=== PATIENT | male | born 1945 | race Caucasian/White ===

== ENCOUNTER → 2017-01-27 | Outpatient (CLI) | payer OTHER ==
[~2017-01-27] VITALS: Ht 172.7 cm; Wt 93.1 kg
[~2017-01-27] MED LIST: ASPI81TA28 PO; ATOR-26 PO; ATOR-54 PO; CLOP1TAB15 PO; DOXY-300 PO; FRRS300 PO; GABA-113 PO; GABA1CAP5 PO; GALA12TA PO; HYDR25TA4 PO; IPRA1AER2 INH; ISOS120T5 PO; MECL1TAB40 PO; METO50TA16 PO; NTRGSL/4 UT; OXGN; PANT40TA PO; PRAM0.129 PO; RANO500T PO; ROPI0.25 PO; ULT50X PO
[2017-01-27 13:21] VITALS: Ht 172.7 cm; Wt 93.1 kg
--- NOTE | 2017-01-27 14:01 | PAT Medication Instructions ---
Service Date Jan 27, 2017. Current Home Medication List Aspirin (Aspirin Ec), 81 MG PO QAM Atorvastatin (Lipitor), 80 MG PO QAM Clopidogrel (Plavix), 75 MG PO QAM Gabapentin (Neurontin), 2 CAP PO HS Gabapentin (Neurontin), 600 MG PO BID Galantamine Hydrobromide (Razadyne), 12 MG PO QAM Hydrochlorothiazide (Hctz), 25 MG PO QAM Ipratropium-Albuterol (Combivent Respimat), 1 PUFFS INH QID PRN for SOB/Wheezing Isosorbide Mononitrate Ext Rel (Imdur Ext Rel), 120 MG PO BID Meclizine HCl (Meclizine HCl), 2 TAB PO TID PRN for VERTIGO Metoprolol Tartrate (Lopressor) (Lopressor), 50 MG PO BID Nitroglycerin (Nitrostat), 0.4 MG UT PRN Oxygen (Oxygen), 2 LITERS NA HS Pantoprazole (Protonix), 40 MG PO QAM Pramipexole (Mirapex), 0.25 MG PO TID Medication Instructions For Your Scheduled Surgery - Check with surgeon/dna sequencing associate: Clopidogrel (Plavix), 75 MG PO QAM Aspirin (Aspirin Ec), 81 MG PO QAM - Hold the following medications the morning of surgery: Hydrochlorothiazide (Hctz), 25 MG PO QAM Pramipexole (Mirapex), 0.25 MG PO TID - Take the following medications the morning of surgery with a sip of water: Pantoprazole (Protonix), 40 MG PO QAM Nitroglycerin (Nitrostat), 0.4 MG UT PRN Meclizine HCl (Meclizine HCl), 2 TAB PO TID PRN for VERTIGO Metoprolol Tartrate (Lopressor) (Lopressor), 50 MG PO BID Isosorbide Mononitrate Ext Rel (Imdur Ext Rel), 120 MG PO BID Ipratropium-Albuterol (Combivent Respimat), 1 PUFFS INH QID PRN for SOB/Wheezing Gabapentin (Neurontin), 600 MG PO BID Atorvastatin (Lipitor), 80 MG PO QAM Galantamine Hydrobromide (Razadyne), 12 MG PO QAM - Hold the following medications as scheduled the night and afternoon before surgery (okay to take AM dose day prior to surgery): Pramipexole (Mirapex), 0.25 MG PO TID - Take the following medications as scheduled the night before surgery: Oxygen (Oxygen), 2 LITERS NA HS Nitroglycerin (Nitrostat), 0.4 MG UT PRN Meclizine HCl (Meclizine HCl), 2 TAB PO TID PRN for VERTIGO Metoprolol Tartrate (Lopressor) (Lopressor), 50 MG PO BID Isosorbide Mononitrate Ext Rel (Imdur Ext Rel), 120 MG PO BID Ipratropium-Albuterol (Combivent Respimat), 1 PUFFS INH QID PRN for SOB/Wheezing Gabapentin (Neurontin), 600 MG PO BID Gabapentin (Neurontin), 2 CAP PO HS If you have any questions please call us at [phone] (Rina Barrios PA-C) or [phone] or [phone]
--- NOTE | 2017-01-27 14:31 | DIAGNOSTIC IMAGING REPORT ---
CHEST PREADMISSION(PA/LAT) HISTORY: Preop. COMPARISON: Chest 11/29/2015. FINDINGS: The heart remains mildly enlarged. There are poststernotomy changes. No pleural effusions. No pneumothorax. No focal lung consolidations to suggest pneumonia. No evidence for pulmonary edema. There is an electronic stimulator device within the left anterior chest. Thoracic spinal electrodes are again noted. A 6 mm nodular density base of the left lower lobe on the AP view is not confirmed on the lateral view and is likely due to the overlapping rib. Stable lower mediastinal widening consistent with prominent mediastinal fat. IMPRESSION: No significant change compared to the prior study. No acute process. Stable mild cardiomegaly. Electronically signed by: Todd Jensen M.D. 01/27/2017 2:28 PM Dictated Date/Time: 01/27/2017 2:25 PM
[2017-01-27 15:00] LABS: PROTHROMBIN TIME (PATIENT) 10.4 SECONDS (9.0-12.0)
[2017-01-27 15:01] LABS: URINE APPEARANCE CLOUDY (CLEAR); URINE BILIRUBIN NEG (NEG); URINE COLOR YELLOW; URINE EPITHELIAL CELL AUTO 20-30 /lpf (0-5); URINE NITRITE POS (NEG); URINE PH 7.5 (4.5-7.5); URINE SPECIFIC GRAVITY 1.025 (1.000-1.030); UROBILINOGEN POS (NEG); ZZUR CULT IF INDIC CLEAN CATCH YES
[2017-01-27 15:02] LABS: BASO % 0.2 %; BASO ABS # 0.01 K/uL (0-0.2); COMPLETE YES; EOS % 1.5 %; HEMATOCRIT 37.7 % (42-52); IG% 0.2 %; LYMPH % 18.4 %; LYMPH ABS # 0.96 K/uL (1.2-3.4); MEAN CORPUSCULAR HEMOGLOBIN 29.8 pg (25-34); MEAN CORPUSCULAR HGB CONC 33.2 g/dl (32-36); MEAN PLATELET VOLUME 10.6 fL (7.4-10.4); MONO % 8.4 %; NEUT % 71.3 %; PLATELET COUNT 179 K/uL (130-400); RED BLOOD COUNT 4.19 M/uL (4.7-6.1); WHITE BLOOD COUNT 5.23 K/uL (4.8-10.8)
[2017-01-27 15:09] LABS: CREATININE 0.87 mg/dl (0.60-1.40)
[2017-01-27 15:10] LABS: BUN/CREATININE RATIO 12.2 (10-20); CALCIUM 9.1 mg/dl (8.5-10.1); POTASSIUM 4.4 mmol/L (3.5-5.1)
[2017-01-27 15:22] LABS: MANUAL MICROSCOPIC REQUIRED? NO; REVIEW REQ? NO
== END | disposition home or self-care (01) ==
LOC: C.LAB 08:00 → EDSTATUS 02-26 13:30
PROVIDERS: ATTEND Orthopaedic Surgery
DX: Z01.818 Encounter for other preprocedural examination (principal); I51.7 Cardiomegaly

== ENCOUNTER 2017-02-04 10:45 | Inpatient (IN) | payer OTHER ==
[~2017-02-04] VITALS: Ht 172.7 cm; Wt 94.2 kg
[2017-02-04] VITALS (7 sets, daily range): BP systolic 100–125; BP diastolic 42–61; PULSE 54–69; TEMP 36.5–36.7; O2SAT 91–97; Ht 172.7 cm; Wt 94.2 kg
[~2017-02-04 10:45] MED LIST changes: -ATOR-54 PO; -DOXY-300 PO; -FRRS300 PO; -RANO500T PO; -ROPI0.25 PO; -ULT50X PO
--- NOTE | 2017-02-04 11:27 | History and Physical ---
History & Physical Date of Service Feb 04, 2017. History & Physical CC: Cold painful left leg HPI: Mr. Salomon is a 70-year-old gentleman who had a left fem pop bypass in Nov. Wednesday while cutting his grass he developed pain in his left leg. It has gotten progressively worse with coldness and a slight numb feeling that developed today. He denies rest pain. PAST MEDICAL HISTORY: Positive for heart disease, hypertension, peripheral vascular occlusive disease and carotid disease. SURGICAL HISTORY: Positive for tonsillectomy, cholecystectomy, appendectomy, hernia repair, open heart bypass, nerve stimulator and heart monitor in 2011. FAMILY HISTORY: Positive for heart disease, migraines, diabetes mellitus, dementia, tuberculosis, circulatory problems, carotid artery disease. SOCIAL HISTORY: He quit smoking in 1992, smoked for 30 years. He does not drink. REVIEW OF SYSTEMS: A 10-system review of systems was obtained and only positive findings were occasional chest pain, heart failure, shortness of breath , bronchitis and heartburn along with the HPI symptoms. PHYSICAL EXAMINATION: The patient is awake, oriented x3. He is in no apparent distress. Head and neck within normal limits. I could not appreciate carotid bruits. Lungs are clear. Heart had a regular rate and rhythm. Abdominal exam is benign. No aneurysmal dilatation was appreciated. Vascular exam reveals radials, carotids and temporal arteries +2 bilaterally. Femorals are +2 bilaterally. He does have pedal pulses on the right. The left leg has no palpable pedal pulses. There is a monophasic doppler in the left peroneal and posterior tibial arteries. No DP could be found with the doppler. The left foot is cool to touch. He is able to wiggle his toes but does have a slight decrease in sensation of the left foot. there is capillary refill present but decreased on the left. Imp: Left femoral popliteal bypass occlusion Plan: Patient is admitted for arteriography and possible thrombolysis of the left leg bypass. I have discussed the risks options and benefits of the procedure with the patient. The patient understands the risks options and benefits and agrees to the procedure.
--- NOTE | 2017-02-04 11:28 | Procedure Note ---
Pre-Mod Sedation Assessment General Date of Moderate Sedation: Feb 04, 2017. Vital Signs: Vital Signs Past 12 Hours Date Time Temp Pulse Resp B/P Pulse Ox O2 Delivery O2 Flow Rate FiO2 02/04/17 10:54 36.5 59 18 140/62 96 Room Air Pre-Sedation Airway Assessment Oral Cavity: Dentures Smoking Status: Former Smoker Mallampati Classification: Class I ASA Classification: Class II Notes The planned sedation has been discussed with the patient and consent obtained. I have identified the patient, determined the appropriateness of sedation and have assessed the patient immediately prior to the procedure. All medicine(s) and interventions are by my order.
[2017-02-04] MEDS ORDERED: SODIUM CHLORIDE 0.9% 1000ML 1,000 ML IV SCH ×2 (11:32→13:30)
[2017-02-04] MEDS ORDERED: FENTANYL CITRATE INJ 50 MCG/1 ML 2 ML VIAL ONE (11:43)
[2017-02-04] MEDS ORDERED: HEPARIN SOD (PORCINE) 5000 UNIT/ML 1 ML VIAL ONE (11:43)
[2017-02-04] MEDS ORDERED: MIDAZOLAM HCL 1 MG/ML 2ML VIAL ONE (11:44)
[2017-02-04] MEDS ORDERED: CEFAZOLIN IV 1,000 MG in DEXTROSE 5% 50ML 50 ML IV ONE (11:45)
[2017-02-04] MEDS ORDERED: CEFAZOLIN SOD 1000MG/55 ML D5W IV ONE (11:53)
[2017-02-04] MEDS ORDERED: HEPARIN SOD (PORCINE) 1000 UNIT/ML 10 ML VIAL ONE (11:53)
[2017-02-04 12:10] LABS: INR 1.1 (0.9-1.1); PROTHROMBIN TIME (PATIENT) 11.7 SECONDS (9.0-12.0)
[2017-02-04 12:19] LABS: CREATININE 0.84 mg/dl (0.60-1.40)
[2017-02-04] MEDS ORDERED: MIDAZOLAM HCL 1 MG/ML 2ML VIAL IV ONE ×2 (12:30→12:42)
[2017-02-04] MEDS ORDERED: FENTANYL CITRATE INJ 50 MCG/1 ML 2 ML VIAL IV ONE ×2 (12:30→12:42)
[2017-02-04] MEDS ORDERED: HEPARIN 25000 UNIT/500 ML D5W ONE (12:50)
[2017-02-04] MEDS ORDERED: NURSING VERBAL MED ORDER ONE (13:00)
[2017-02-04] MEDS ORDERED: IODIXANOL (VISIPAQUE) 270 MG/ML 150ML IV ONE (13:00)
[2017-02-04] MEDS ORDERED: LIDOCAINE HCL 1% 20 ML VIAL INFIL ONE (13:00)
--- NOTE | 2017-02-04 13:02 | Procedure Note ---
Post-Moderate Sedation Plan General Date of Moderate Sedation Feb 04, 2017. Vital Signs: Vital Signs Past 12 Hours Date Time Temp Pulse Resp B/P Pulse Ox O2 Delivery O2 Flow Rate FiO2 02/04/17 10:54 36.5 59 18 140/62 96 Room Air Review - Discharge Plan Post Moderate Sedation Plan: On clinical assessment, the patient appears to have tolerated the conscious sedation without complications. Patient is recovering as anticipated. Patient will continue to be monitored by nursing and may be discharged when conscious sedation discharge criteria are met.
[2017-02-04] MEDS ORDERED: ALTEPLASE, RECOMBINANT 0 MG in SODIUM CHLORIDE 0.9% 250ML 250 ML IV ONE ×4 (13:03)
--- NOTE | 2017-02-04 13:13 | [facility] Post Operative Brief Note ---
Immediate Operative Summary Operative Date Feb 04, 2017. Pre-Operative Diagnosis Occluded left fem pop bypass Post-Operative Diagnosis Same Procedure(s) Performed Left lower Extremity Arterigoram Insertion of Infusion Catheter Thomboysis Moderate Sedation [id number] Surgeon George Jelly Filter Tender Surgeon(s) None Estimated Blood Loss 5 Findings occluded fem pop bypass, recon of ant tib Specimens None Anesthesia Local with conscious sedation Complication(s) None Disposition Surgical ICU
[2017-02-04] MEDS ORDERED: ONDANSETRON INJ 2 MG/ML 2 ML VIAL IV PRN (13:15)
[2017-02-04] MEDS ORDERED: HEPARIN 25,000 UNIT/500ML D5W 500 ML IV PRN (13:15)
[2017-02-04] MEDS ORDERED: HEPARIN 25,000 UNIT/500ML D5W 500 ML IV SCH (13:15)
[2017-02-04] MEDS: SODIUM CHLORIDE 0.9% 1000ML 1,000 ML IV SCH ×2 (14:24→21:42)
[2017-02-04] MEDS ORDERED: ALTEPLASE, RECOMBINANT 24 MG in SODIUM CHLORIDE 0.9% 250ML 216 ML IV ONE ×2 (14:30)
[2017-02-04 14:57] LABS: BASO % 0.2 %; BASO ABS # 0.01 K/uL (0-0.2); EOS % 1.9 %; HEMATOCRIT 37.5 % (42-52); IG% 0.2 %; LYMPH % 19.7 %; LYMPH ABS # 1.14 K/uL (1.2-3.4); MEAN CELL VOLUME 91.9 fL (80-100); MEAN CORPUSCULAR HEMOGLOBIN 30.6 pg (25-34); MEAN PLATELET VOLUME 10.4 fL (7.4-10.4); MONO % 9.8 %; NEUT % 68.2 %; PLATELET COUNT 145 K/uL (130-400); RED BLOOD COUNT 4.08 M/uL (4.7-6.1)
[2017-02-04 15:03] LABS: COMPLETE YES; MEAN CORPUSCULAR HGB CONC 33.3 g/dl (32-36)
[2017-02-04] MEDS: MoRPHine SULFATE 4 MG/ML 1 ML CARP\\VIAL IV PRN ×2 (15:39→20:00)
[2017-02-04 19:13] LABS: BASO % 0.3 %; BASO ABS # 0.02 K/uL (0-0.2); COMPLETE YES; EOS % 1.8 %; HEMATOCRIT 34.4 % (42-52); IG% 0.3 %; LYMPH % 18.9 %; LYMPH ABS # 1.24 K/uL (1.2-3.4); MEAN CELL VOLUME 91.5 fL (80-100); MEAN CORPUSCULAR HEMOGLOBIN 30.6 pg (25-34); MEAN CORPUSCULAR HGB CONC 33.4 g/dl (32-36); MEAN PLATELET VOLUME 10.5 fL (7.4-10.4); MONO % 9.9 %; NEUT % 68.8 %; PLATELET COUNT 156 K/uL (130-400); RED BLOOD COUNT 3.76 M/uL (4.7-6.1); WHITE BLOOD COUNT 6.55 K/uL (4.8-10.8)
--- NOTE | 2017-02-04 19:22 | CRITICAL CARE CONSULTATION ---
DATE OF CONSULTATION: 02/04/2017 CHIEF COMPLAINT: Left leg pain and numbness. HISTORY OF PRESENT ILLNESS: The patient is a very nice 71-year-old gentleman who underwent a left fem-pop bypass in November of 2015. He has multiple medical problems, and he was in his normal state of health until 2 days ago, when he was cutting grass. He has a push mower and felt pain in his left buttock. The pain gradually spread down his leg and he rested for a little bit and then went back out to try to finish the lawn. By the time he tried to go back in the house, he had difficulty even walking up steps secondary to severe pain primarily in the left lower leg. He said it was numb, cold and started to turn a little bit white. He felt like perhaps he had pulled a muscle or tendon. So, he did not move around much the next day. Primarily due to the numbness and pain, his foot also became weak. He presented to the [facility], where he was evaluated and pulses in the foot were unable to be dopplered. Dr. Vazquez was contacted and the patient was transferred to [facility]. It should be added that at [facility], he had an EKG, which showed a normal sinus rhythm with right bundle-branch block and left axis deviation. He also had a chest x-ray, which showed no acute process. Labs were also drawn. After being briefly evaluated in the Emergency Department by Dr. Vazquez, the patient was eventually taken to the operating room today and underwent left lower extremity arteriogram, infusion catheter placement and he is now on a TPA infusion. The angiogram intraoperatively showed an occlusion of the left fem-pop bypass. He is now admitted to the intensive care unit for neurovascular monitoring. PAST MEDICAL HISTORY: Hypertension, peripheral vascular disease, chronic obstructive pulmonary disease, coronary artery disease status post myocardial infarction and coronary artery bypass grafting surgery in 2001, obstructive sleep apnea for which he wears 2 liters of oxygen at night, history of L1 compression fracture, gastroesophageal reflux disease, restless legs syndrome, syncope, hiatal hernia, vertigo and Parkinson's. PAST SURGICAL HISTORY: Status post tonsillectomy, cholecystectomy, appendectomy, hernia repair x3, coronary artery bypass grafting surgery, stenting to the right leg, intraocular lens placement, neurostimulator placement, and partial orchiectomy. ALLERGIES: TO TEGRETOL, BUDESONIDE, AND FORMOTEROL. OUTPATIENT MEDICATIONS: Aspirin 81 mg daily, Lipitor 80 mg daily, Plavix 75 mg daily, gabapentin 800 mg at bedtime and 600 mg b.i.d., Razadyne 12 mg in the morning, hydrochlorothiazide 25 mg in the morning, Combivent 1 puff q.i.d. p.r.n., extended release Imdur 120 mg p.o. b.i.d., meclizine p.r.n., metoprolol 50 mg b.i.d., Nitrostat p.r.n., Protonix 40 mg daily, and pramipexole 0.25 mg p.o. t.i.d. SOCIAL HISTORY: He smoked about a pack and half of cigarettes per day x30-35 years and quit around 1992. He drinks alcohol occasionally. He is retired for 10 years now and has 2 children. He is . He served in the [employer] for 4 years and the [employer] for 16 years. FAMILY HISTORY: Significant for coronary artery disease, diabetes mellitus, dementia, migraines and tuberculosis. REVIEW OF SYSTEMS: The patient denies any headache, visual changes, loss of appetite, dizziness, chest pain, shortness of breath, nausea, vomiting, diarrhea, fevers, chills, abdominal pain, hematochezia, hemoptysis, falls, skin rashes, bruising, or bleeding. He was in his normal state of health prior to this episode the other day. PHYSICAL EXAMINATION: VITAL SIGNS: Temperature 36.5, heart rate 55, respiratory rate 18, blood pressure 120/61, and oxygen saturation 97% on room air. HEENT: Pupils are round bilaterally. Oral mucosa is slightly dry. He is edentulous. Posterior pharynx is clear. NECK: No adenopathy. LUNGS: Clear to auscultation bilaterally with decreased breath sounds in the bases. Slightly bradycardic. No murmurs, gallops or rubs. CHEST: Has symmetric expansion. ABDOMEN: Obese, soft, nondistended, and nontender. Active bowel sounds. EXTREMITIES: Show the left foot to be cold from about the medial malleolus distally. It is cool from several inches above the medial malleolus to the distal medial malleolus around the leg. The rest of the leg is warm. Pulses are not audible by Doppler in the left foot distal to the popliteal artery. The skin over the left foot has decreased capillary refill. He is able to wiggle his toes. Right leg, there is trace to no edema over the leg. Dorsalis pedis pulses 1+. No skin changes. NEUROLOGIC: The patient is awake, alert, and oriented and able to carry on a conversation. His sensation is grossly intact with the exception of the left forefoot. LABORATORY DATA: White blood cell count 5.8, hemoglobin 12.5, hematocrit 37.5, and platelets 145. PT 11.1, INR 1.1, and PTT 104.8. BUN 11 and creatinine 0.84. MRSA screen is pending. I reviewed the EKG from [facility]. IMPRESSION: 1. Occluded left fem-pop bypass, status post placement of an infusion catheter into the left arterial system from a right groin sheath, now receiving TPA. 2. Peripheral vascular disease, status post left fem-pop bypass in November of 2015. 3. History of hypertension, presently controlled. 4. History of chronic obstructive pulmonary disease. 5. Coronary artery disease with a history of open heart surgery as well as stenting post surgery. Clinically, he has been stable and without chest pain. 6. Mild obstructive sleep apnea, for which he uses 2 liters of oxygen at bedtime. PLAN AND RECOMMENDATIONS: 1. Morphine for analgesia. 2. Continue neurovascular checks and watch for any signs of bleeding. I suspect Dr. Vazquez will do further studies tomorrow. 3. Continue outpatient medications. 4. Continue heparin infusion. 5. Provide incentive spirometer and coaching. 6. He is on proton pump inhibitor for GI prophylaxis. Thank you for asking me to see this very nice gentleman. Please call me with any questions or concerns. JASON
[2017-02-04 19:29] LABS: PARTIAL THROMBOPLASTIN RATIO 2.3
[2017-02-05] VITALS (23 sets, daily range): BP systolic 79–127; BP diastolic 44–70; PULSE 60–83; TEMP 36.3–37.1; O2SAT 91–99
[2017-02-05 00:58] LABS: BASO % 0.1 %; BASO ABS # 0.01 K/uL (0-0.2); COMPLETE YES; EOS % 0.7 %; HEMATOCRIT 32.9 % (42-52); IG% 0.3 %; LYMPH % 11.4 %; MEAN CELL VOLUME 92.4 fL (80-100); MEAN CORPUSCULAR HEMOGLOBIN 30.6 pg (25-34); MEAN CORPUSCULAR HGB CONC 33.1 g/dl (32-36); MONO % 7.7 %; NEUT % 79.8 %; PLATELET COUNT 140 K/uL (130-400); RED BLOOD COUNT 3.56 M/uL (4.7-6.1); WHITE BLOOD COUNT 7.01 K/uL (4.8-10.8)
[2017-02-05 01:31] LABS: PARTIAL THROMBOPLASTIN RATIO 2.2
[2017-02-05] MEDS ORDERED: ALTEPLASE, RECOMBINANT 12 MG in SODIUM CHLORIDE 0.9% 250ML 228 ML IV ONE ×2 (02:30)
[2017-02-05] MEDS ORDERED: CEFAZOLIN IV 2,000 MG in DEXTROSE 5% 50ML 50 ML IV SCH ×4 (06:00)
[2017-02-05 06:39] LABS: BASO % 0.2 %; BASO ABS # 0.02 K/uL (0-0.2); COMPLETE YES; EOS % 0.3 %; HEMATOCRIT 30.6 % (42-52); IG% 0.3 %; LYMPH % 10.5 %; LYMPH ABS # 0.98 K/uL (1.2-3.4); MEAN CELL VOLUME 91.9 fL (80-100); MEAN CORPUSCULAR HEMOGLOBIN 30.6 pg (25-34); MEAN CORPUSCULAR HGB CONC 33.3 g/dl (32-36); MEAN PLATELET VOLUME 10.1 fL (7.4-10.4); MONO % 6.6 %; NEUT % 82.1 %; PLATELET COUNT 171 K/uL (130-400); RED BLOOD COUNT 3.33 M/uL (4.7-6.1); WHITE BLOOD COUNT 9.35 K/uL (4.8-10.8)
[2017-02-05 06:54] LABS: PARTIAL THROMBOPLASTIN RATIO 2.3
[2017-02-05] MEDS ORDERED: IPRATROPIUM BROMIDE/ALBUTEROL respimat INH INH PRN ×2 (07:15→09:45)
[2017-02-05] MEDS: MoRPHine SULFATE 4 MG/ML 1 ML CARP\\VIAL IV PRN (07:19)
--- NOTE | 2017-02-05 07:38 | Procedure Note ---
Pre-Mod Sedation Assessment General Date of Moderate Sedation: Feb 05, 2017. Vital Signs: Vital Signs Past 12 Hours Date Time Temp Pulse Resp B/P Pulse Ox O2 Delivery O2 Flow Rate FiO2 02/05/17 06:00 76 16 111/51 95 Nasal Cannula 2.0 02/05/17 05:06 78 17 123/70 95 Nasal Cannula 2.0 02/05/17 04:00 Nasal Cannula 2.0 02/05/17 04:00 37.1 77 18 108/54 94 Nasal Cannula 2.0 02/05/17 03:00 70 12 126/51 94 Nasal Cannula 2.0 02/05/17 02:11 69 16 109/53 94 Nasal Cannula 2.0 02/05/17 01:00 66 21 127/44 95 Nasal Cannula 2.0 02/05/17 00:00 Nasal Cannula 2.0 02/05/17 00:00 36.7 60 11 110/51 95 02/05/17 00:00 60 14 110/51 95 Nasal Cannula 2.0 02/04/17 22:01 61 18 102/46 97 Nasal Cannula 2.0 02/04/17 21:04 65 18 100/42 96 Nasal Cannula 2.0 02/04/17 20:00 36.6 69 20 113/46 91 Room Air 02/04/17 20:00 Room Air Pre-Sedation Airway Assessment Oral Cavity: Dentures Smoking Status: Never Smoker Mallampati Classification: Class I ASA Classification: Class II Notes The planned sedation has been discussed with the patient and consent obtained. I have identified the patient, determined the appropriateness of sedation and have assessed the patient immediately prior to the procedure. All medicine(s) and interventions are by my order.
--- NOTE | 2017-02-05 07:39 | Progress Note ---
Progress Note Date of Service Feb 05, 2017. Progress Note Patient for recheck of his thrombolysis and possible intervention. I have discussed the risks options and benefits of the procedure with the patient. The patient understands the risks options and benefits and agrees to the procedure. I have examined the patient, reviewed the History & Physical and in the interval since the performance of the History & Physical I have noted the following changes of clinical significance: No changes noted
[2017-02-05] MEDS ORDERED: FENTANYL CITRATE INJ 50 MCG/1 ML 2 ML VIAL ONE ×2 (08:47→09:18)
[2017-02-05] MEDS ORDERED: MIDAZOLAM HCL 1 MG/ML 2ML VIAL ONE ×2 (08:48→09:18)
[2017-02-05] MEDS ORDERED: PRAMIPEXOLE DIHYDROCHLORIDE 0.25MG TAB PO SCH (09:00)
[2017-02-05] MEDS ORDERED: MIDAZOLAM HCL 1 MG/ML 2ML VIAL IV ONE (09:11)
[2017-02-05] MEDS ORDERED: FENTANYL CITRATE INJ 50 MCG/1 ML 2 ML VIAL IV ONE (09:12)
[2017-02-05] MEDS ORDERED: IODIXANOL (VISIPAQUE) 270 MG/ML 150ML IV ONE (09:14)
--- NOTE | 2017-02-05 09:32 | [facility] Post Operative Brief Note ---
Immediate Operative Summary Operative Date Feb 05, 2017. Pre-Operative Diagnosis Occluded left fem pop bypass Post-Operative Diagnosis Same Procedure(s) Performed Recheck Thomboysis Percutaneous Angioplasty to Proximal Anastamosis Mechanical Closure of Right Femoral Artery Moderate Sedation [id number] Surgeon George Cage Unloader Surgeon(s) None Estimated Blood Loss 0 Findings Graft widely patent Specimens None Anesthesia Local with conscious sedation Complication(s) None Disposition Surgical ICU
[2017-02-05] MEDS ORDERED: CLOPIDOGREL BISULFATE 300 MG TAB PO STA (09:33)
[2017-02-05] MEDS ORDERED: OXYCODONE/ACETAMINOPHEN 5-325 TAB PO PRN (09:45)
[2017-02-05] MEDS ORDERED: MECLIZINE HCL 12.5 MG TAB PO PRN (09:45)
[2017-02-05] MEDS ORDERED: NITROGLYCERIN 0.4 MG SL PER TAB CHARGE UT PRN (09:45)
--- NOTE | 2017-02-05 09:45 | Procedure Note ---
Post-Moderate Sedation Plan General Date of Moderate Sedation Feb 05, 2017. Vital Signs: Vital Signs Past 12 Hours Date Time Temp Pulse Resp B/P Pulse Ox O2 Delivery O2 Flow Rate FiO2 02/05/17 06:00 76 16 111/51 95 Nasal Cannula 2.0 02/05/17 05:06 78 17 123/70 95 Nasal Cannula 2.0 02/05/17 04:00 Nasal Cannula 2.0 02/05/17 04:00 37.1 77 18 108/54 94 Nasal Cannula 2.0 02/05/17 03:00 70 12 126/51 94 Nasal Cannula 2.0 02/05/17 02:11 69 16 109/53 94 Nasal Cannula 2.0 02/05/17 01:00 66 21 127/44 95 Nasal Cannula 2.0 02/05/17 00:00 Nasal Cannula 2.0 02/05/17 00:00 36.7 60 11 110/51 95 02/05/17 00:00 60 14 110/51 95 Nasal Cannula 2.0 02/04/17 22:01 61 18 102/46 97 Nasal Cannula 2.0 Review - Discharge Plan Post Moderate Sedation Plan: On clinical assessment, the patient appears to have tolerated the conscious sedation without complications. Patient is recovering as anticipated. Patient will continue to be monitored by nursing and may be discharged when conscious sedation discharge criteria are met.
[2017-02-05] MEDS: GABAPENTIN 600 MG TAB PO SCH ×2 (10:32→10:34)
[2017-02-05] MEDS: METOPROLOL TARTRATE 50 MG TAB PO SCH ×2 (10:33→19:47)
[2017-02-05] MEDS: HYDROCHLOROTHIAZIDE 25 MG TAB PO SCH (10:33)
[2017-02-05] MEDS: ISOSORBIDE MONONITRATE 30 MG TABCR PO SCH (10:33)
[2017-02-05] MEDS ORDERED: PANTOprazole INJ 40 MG in SYRINGE 0 ML IV SCH (11:00)
--- NOTE | 2017-02-05 12:12 | Discharge Instructions ---
Discharge Instructions Date of Service Feb 05, 2017. Admission Reason for Admission: Left Femoral-Popliteal Bypass Graft Occlusion Discharge Discharge Diagnosis / Problem: Thrombosed left fem pop bypass Discharge Goals Goal(s): Therapeutic intervention Activity Recommendations Activity Limitations: per Instructions/Follow-up section . Instructions / Follow-Up Instructions / Follow-Up Call [phone] to schedule a follow up appointment if one not already scheduled. SPECIAL CARE INSTRUCTIONS: Medications: * Continue to take your medications as directed. If you have been given a prescription for Plavix, please fill it immediately and take as directed. Incision Care: * Your puncture site may have some bruising and minor swelling for about one week. * You will have a small dressing covering your puncture site. You may remove the dressing after 24 hours and shower. You may let the warm soapy water run over it, but be sure to dry the puncture site well and keep it dry. * DO NOT IMMERSE THE INCISION IN A TUB/POOL/etc. UNTIL HEALED. * Puncture sites should be kept covered with a band-aid until it begins to heal. Restrictions: * Depending on whether you leg or arm was punctured to access the arteries, you will be required to lay flat, hold your arm still, or both, for about 4 hours after the procedure to prevent bleeding. * Limit your activity for the first 48 hours. You may walk and go up and down steps. Avoid excessive bending or movement at the puncture site. Possible Complications: * Excessive Swelling - after blood flow is improved you may notice increased swelling in the lower legs. This is a normal response. This usually depends on the amount of blockages in the leg, how long they have been there prior to your procedure and how much blood flow was restored. Elevating your legs will help to improve this. Please notify our office ([phone] ) if the swelling does not go away after lying in bed overnight. * Infection/Drainage/Bleeding - Drainage or bleeding from the puncture site should be minimal. If you have excessive bleeding or drainage, call our office ([phone]) right away. * Pain - You may experience some mild pain or soreness at your puncture site. If your pain does not improve, please contact our office ([phone]). Call your doctor and seek emergent treatment if you develop: * Temperature above 101 degrees * Any fever or chills * Any redness or purulent drainage from the puncture site * Any new dusky/blue colored toes or feet with coolness or sharp or aching pain. SKIN IRRITATION: * You may experience some redness and/or swelling in the area where radiation was administered. If any skin irritation occurs, please contact your family physician. FOLLOW UP VISIT: Keep any scheduled doctor appointments. Current Hospital Diet Patient's current hospital diet: AHA Diet (Heart Healthy) Discharge Diet Recommended Diet: AHA Diet (Heart Healthy) Procedures Procedures Performed: Recheck Thomboysis Percutaneous Angioplasty to Proximal Anastamosis Mechanical Closure of Right Femoral Artery Moderate Sedation [id number] Pending Studies Studies pending at discharge: no Medical Emergencies . Who to Call and When: Medical Emergencies: If at any time you feel your situation is an emergency, please call 911 immediately. . Non-Emergent Contact Non-Emergency issues call your: Surgeon . "Provider Documentation" section prepared by James Vazquez. . VTE Core Measure Inpt VTE Proph given/why not?: Other Anticoagulation
--- NOTE | 2017-02-05 12:59 | CRITICAL CARE PROGRESS NOTE ---
DATE: 02/05/2017 SUBJECTIVE: There were no acute events overnight. The patient remained on his heparin infusion and catheter-directed TPA. He was having some left groin pain and nausea earlier today. He has since been taken to the operating room by Dr. Vazquez to recheck the thrombosis. He arrived back in the intensive care unit with a posterior tibial pulse audible by Doppler. His pain had improved and his right groin catheter had been discontinued. He denies shortness of breath, nausea and vomiting once back from the OR. His pain is better controlled as well. PHYSICAL EXAMINATION: VITAL SIGNS: Maximum temperature 37.1, heart rate 70s, respiratory rate 11-21, blood pressure 108-126/40s-50s, oxygen saturation 94% on 2 liters nasal cannula. The 24-hour fluid balance positive 764 mL. GENERAL: He is awake, alert and in no distress. LUNGS: Clear to auscultation bilaterally. No rales, rhonchi or wheezes. HEART: Regular rate and rhythm. ABDOMEN: Benign. Right groin has the catheter removed and there is a 2 x 2 an Op-Site which are clean, dry and intact. EXTREMITIES: Left foot has an audible posterior tibial pulse by Doppler and the foot is warmer than yesterday but still cool in the left forefoot. There is trace edema. LABORATORY DATA: White blood cell count 9.35, hemoglobin 10.2, hematocrit 30.5, and platelets 171. PTT 60.2. MEDICATIONS: Reviewed. IMPRESSION: 1. Occlusion of left femoral-popliteal bypass, status post placement of an infusion catheter with tissue plasminogen activator, pulses and temperature in that foot have improved. 2. Peripheral vascular disease status post left femoral-popliteal bypass November 2015. 3. History of hypertension. 4. History of chronic obstructive pulmonary disease. 5. History of coronary artery disease. 6. Mild obstructive sleep apnea. PLAN: I started to resume what I felt were necessary medications this morning before he went back to the operating room. These were held and the medication reconciliation was completed in the meantime. He is back on all of his outpatient medications and my understanding is that he will be discharged later today. He is no longer on heparin or TPA. He is certainly stable for transfer to the floor, if he does not get discharged today. I will sign off at this time. Please call me with any questions or concerns.
[2017-02-05] MEDS: PRAMIPEXOLE DIHYDROCHLORIDE 0.25MG TAB PO SCH ×2 (13:30→19:46)
[2017-02-05] MEDS ORDERED: NURSING VERBAL MED ORDER ONE ×2 (14:15→16:15)
[2017-02-05] MEDS ORDERED: SODIUM CHLORIDE 0.9% 500ML 500 ML IV ONE (14:30)
[2017-02-05 14:37] LABS: HEMATOCRIT 31.8 % (42-52)
[2017-02-05] MEDS: SODIUM CHLORIDE 0.9% 1000ML 1,000 ML IV SCH (16:53)
[2017-02-05] MEDS ORDERED: METOPROLOL TARTRATE 50 MG TAB PO SCH (21:00)
[2017-02-05] MEDS ORDERED: GABAPENTIN 400 MG CAP PO SCH (21:00)
[2017-02-05] MEDS ORDERED: GABAPENTIN 300 MG CAP PO SCH (21:00)
[2017-02-05] MEDS ORDERED: ISOSORBIDE MONONITRATE 60 MG TABCR PO SCH (21:00)
[2017-02-05] MEDS ORDERED: GABAPENTIN 800 MG TAB PO SCH (21:00)
[2017-02-06] MEDS: SODIUM CHLORIDE 0.9% 1000ML 1,000 ML IV SCH (01:42)
[2017-02-06 03:26] VITALS: BP 121/66; PULSE 87; TEMP 37; O2SAT 91
[2017-02-06 07:53] VITALS: BP_SYST 108; BP_DIAS 49; BP_DIAS 56
[2017-02-06 08:11] VITALS: BP 116/49; PULSE 87; TEMP 36.8; O2SAT 93
--- NOTE | 2017-02-06 08:50 | Progress Note ---
Progress Note Date of Service: Feb 06, 2017. Subjective No complaints. No dizziness today. Problem List Medical Problems: (1) Hematuria Status: Acute Objective Vital Signs Vital Signs Past 12 Hours Date Time Temp Pulse Resp B/P Pulse Ox O2 Delivery O2 Flow Rate FiO2 02/06/17 08:11 36.8 87 20 116/49 93 Room Air 02/06/17 07:53 108/49 108/56 02/06/17 04:00 Room Air 02/06/17 03:26 37.0 87 18 121/66 91 Room Air 02/06/17 00:00 Room Air 02/05/17 23:32 36.5 71 18 102/62 92 Room Air Exam Awake alert. In chair. VSS No orthostatic changes Good doppler left foot. Puncture site clean and dry Intake & Output 8-Hour Column 02/05/17 02/06/17 02/06/17 16:00 00:00 08:00 Intake Total 2964 ml 838 ml 551 ml Output Total 100 ml 160 ml 300 ml Balance 2864 ml 678 ml 251 ml 24-Hour Column 02/06/17 08:00 Intake Total 4353 ml Output Total 560 ml Balance 3793 ml Laboratory and Microbiology Results Past 24 Hours Test 02/05/17 14:26 Range/Units Hemoglobin 10.1 14.0-18.0 g/dL Hematocrit 31.8 42-52 % Imp: Post thrombolysis Plan: Doing well. No complaints. Will D/C today
[2017-02-06] MEDS: METOPROLOL TARTRATE 50 MG TAB PO SCH (08:55)
[2017-02-06] MEDS: PRAMIPEXOLE DIHYDROCHLORIDE 0.25MG TAB PO SCH (08:56)
[2017-02-06] MEDS: ISOSORBIDE MONONITRATE 30 MG TABCR PO SCH (08:56)
[2017-02-06] MEDS: HYDROCHLOROTHIAZIDE 25 MG TAB PO SCH (08:56)
[2017-02-06] MEDS: GABAPENTIN 600 MG TAB PO SCH (08:56)
[2017-02-06] MEDS ORDERED: ATORVASTATIN 40 MG TAB PO SCH (09:00)
[2017-02-06] MEDS ORDERED: HYDROCHLOROTHIAZIDE 25 MG TAB PO SCH (09:00)
[2017-02-06] MEDS ORDERED: CLOPIDOGREL BISULFATE 75 MG TAB PO SCH (09:00)
[2017-02-06] MEDS ORDERED: PANTOprazole SOD 40 MG TAB PO SCH (09:00)
[2017-02-06] MEDS ORDERED: GALANTAMINE HYDROBROMIDE 4 MG TAB PO SCH (09:00)
[2017-02-06] MEDS ORDERED: ASPIRIN 81 MG ECTAB PO SCH (09:00)
--- NOTE | 2017-02-09 09:24 | DISCHARGE SUMMARY ---
ADMISSION DIAGNOSIS: Left lower extremity fem-pop bypass occlusion. DISCHARGE DIAGNOSES: 1. Status post left lower extremity thrombolysis arteriogram, and percutaneous transluminal angioplasty of proximal anastomosis. 2. Left lower extremity fem-pop bypass occlusion. DISCHARGE CONDITION: Stable. CONSULTATIONS IN THE HOSPITAL: Included critical care due to an ICU overnight stay while thrombolysis was infusing. PROCEDURES IN THE HOSPITAL: Included: 1. Left leg arteriography and insertion of an infusion catheter for thrombolysis on 02/04/2017. 2. Left lower extremity recheck thrombolysis and [employer] to proximal anastomosis on 02/05/2017. Both procedures went well without any complications. HISTORY OF PRESENT ILLNESS: Mr. Hermosillo is a 71-year-old male who had undergone a fem-pop bypass graft by Dr. George arndt in November of 2015. Approximately 1 day prior to hospital arrival, he developed discomfort in his left leg while using his push mower to cut grass. The pain had gotten worse with a coldness and numbness to his left leg as well. At that point, he decided to come to the Emergency Department for evaluation and there he was found to have an occluded fem-pop bypass graft. The recommendation was made at that time to attempt thrombolysis for salvage of the graft. The procedure, risks, benefits, alternatives were discussed at length with the patient. He expressed understanding and agreement to proceed. HOSPITAL COURSE: Mr. Salomon underwent left leg arteriography with thrombolysis catheter insertion on 02/04/2017 emergently. He did well during his hospital stay on TPA infusion. He remained stable throughout. The following day a recheck was performed to evaluate the success of thrombolysis. Unfortunately, this resulted in complete thrombolysis of the occlusion and his bypass graft. During that session he was noted to have a slight stenosis at his proximal anastomosis which underwent percutaneous transluminal angioplasty, which was successful. The patient's foot remained viable and distal pulses were able to be found with the Doppler. The patient's symptoms were relieved. He was felt to be stable enough for discharge the following day. PHYSICAL EXAMINATION: VITAL SIGNS: On day of discharge, vital signs were as follows: Temperature of 36.8, pulse of 87, respiratory rate of 20, blood pressure 116/49, pulse oximetry 93% on room air. CONSTITUTIONAL: The patient is a mildly chronically ill appearing elderly male in no acute distress. He ambulates without assistance and is active, alert and oriented x4 with normal recent and remote memory. HEAD: Normocephalic and atraumatic. EYES: EOMI. EARS, NOSE, THROAT: Demonstrates no hearing loss, rhinorrhea or pharyngeal erythema. NECK: Supple, nontender with midline trachea without masses or crepitus. LUNGS: Demonstrates no dyspnea. They are clear to auscultation bilaterally. CARDIOVASCULAR EXAMINATION: Demonstrates apical impulse with a regular rate and rhythm without murmurs, rubs, clicks or gallops. His peripheral pulses are full and equal in all extremities unless otherwise noted, specifically his carotid, brachial, radial and femorals are +2. His left lower extremity distal pulses are present with Doppler as are his right lower extremity distal pulses. MUSCULOSKELETAL: Demonstrates normal tone and strength for age. Bilateral upper extremities demonstrate no cyanosis, edema, clubbing, varicosities or ulcers. The patient's groin puncture site is healing well. There is no sign of hematoma or pulsatile mass. There is some mild local soft ecchymosis. DIET UPON DISCHARGE: Should be a low-cholesterol AHA diet. MEDICATIONS: Reconciled in the chart and are as per the discharge instructions. Followup should be with Dr. Vazquez or his PA Tonya Damian in the office within 2 weeks for reevaluation. He is advised to call with any questions or concerns. JASON
--- NOTE | 2017-02-17 13:54 | DIAGNOSTIC IMAGING REPORT ---
DATE OF PROCEDURE: 02/04/2017 PREOPERATIVE DIAGNOSIS: Occluded left fem-pop bypass. POSTOPERATIVE DIAGNOSIS: Same. PROCEDURE: Left lower extremity arteriography, insertion of infusion catheter, thrombolytic therapy, conscious sedation 26 minutes. SURGEON: Dr. Vazquez. ANESTHETIC: Local with conscious sedation. PROCEDURE INDICATIONS: The patient is a 71-year-old gentleman who had a fem-pop bypass done in the past with prosthetic material. He came in in acute occlusion. We elected to try thrombolytic therapy. He understood the risks, options and benefits and agreed to have this procedure. The patient was taken to the angio suite and placed in supine position. After groins were prepped and draped in a sterile manner, local anesthetic was administered right groin. A percutaneous puncture was made of the right common femoral artery. A short 0.035 wire was inserted and 5-[place] sheath was inserted over the wire. Wire was then passed up into the inferior vena cava. Using a rim catheter, the left side was cannulated from the right side. The catheter was passed down into the external iliac artery. Arteriography was performed which showed the common femoral and profunda femoral artery widely patent. There was a complete occlusion superficial femoral artery and the bypass graft. There was reconstitution of the popliteal artery distally with what appeared to be a 3-vessel runoff below. There was a loss of contrast due to the occlusion in the thigh. We then passed a wire through the rim catheter. We exchanged the sheath to a 6-[place] destination. Using a wire and a Quick-Cross catheter, the graft was cannulated and the wire and Quick-Cross passed down into the distal popliteal. This was confirmed with hand injection. Once this was in place, the wire was reinserted. The Quick-Cross was removed. A 50 cm [place] infusion catheter was inserted. The tip of the catheter was placed in the distal popliteal. The wire was inserted into the catheter. This coursed along the entire length of the bypass graft into the common femoral artery. The heparin was then used to infuse through the sheath. TPA was then used to infuse through the catheter and thrombolytic therapy was begun. The catheter was then dressed sterilely on the right groin. The patient was transported to the Intensive Care Unit in good condition and tolerated the procedure well. JASON
--- NOTE | 2017-02-24 11:04 | DIAGNOSTIC IMAGING REPORT ---
DATE OF PROCEDURE: 02/05/2017 PREOPERATIVE DIAGNOSIS: Thrombolytic therapy for occluded left fem-pop bypass. POSTOPERATIVE DIAGNOSIS: Same. PROCEDURES: 1. Recheck of the left lower extremity thrombolytic therapy. 2. Balloon angioplasty of the proximal anastomosis of the graft. 3. Mechanical closure. 4. Conscious sedation 12 minutes. SURGEON: Dr. Vazquez. ANESTHETIC: Local with conscious sedation. PROCEDURE INDICATIONS: The patient is a 71-year-old gentleman with acute limb ischemia undergoing thrombolytic therapy for an occluded fem-pop bypass. He is brought back at this time for a recheck of the graft and therapy and possible intervention. He understood the risks, options, benefits and agreed to have this procedure. The patient was placed in supine position. After the dressings were removed sterilely and the catheter and groin were prepped and passed through the drapes the area of the insertion site was anesthetized. The 0.035 wire was reinserted and the sheath and the infusion catheter was removed. The arteriogram was then performed which showed the bypass graft now to be widely patent. There was no residual clot seen. There was no stenosis at the distal anastomosis. The popliteal artery beyond the bypass was widely patent. The anterior tibial is patent down to the upper third of the calf and then totally occluded peroneal and posterior tibial runoff all the way down to the ankle and across the foot respectively. There was a question of narrowing and layering of some fibrin at the proximal anastomosis. We used a 6 x 60 [place] balloon and ballooned this area. Good results were seen. The graft was now widely patent with no evidence of any narrowing. At that point the sheath was pulled back to the right iliac. The puncture site was noted to be anterior in this common femoral artery. The puncture site was then closed using a Star closure device. Adequate hemostasis was noted. Sterile dressings were applied. The patient had a good palpable posterior tibial artery pulse at the end of the procedure. The patient was transported from the angiogram suite in good condition and tolerated the procedure well.
== END 2017-02-06 10:30 | disposition home or self-care (01) | DRG 316 ==
LOC: ENRESERVDT → ENRESERVTM → EDBD 10:45 → C.EDB 10:46 → C.MSICU 12:09 → C.2T 02-05 17:35
PROVIDERS: ADMIT Surgery Vascular Surgery; ATTEND Surgery Vascular Surgery
PROC: 3E03317 Introduction of Other Thrombolytic into Peripheral Vein, Percutaneous Approach (ICD-10-PCS; principal; 2017-02-04 10:45)
PROC: 04HL33Z Insertion of Infusion Device into Left Femoral Artery, Percutaneous Approach (ICD-10-PCS; principal; 2017-02-04 10:45)
DX: T82.868A Thrombosis due to vascular prosthetic devices, implants and grafts, initial encounter (principal); I73.9 Peripheral vascular disease, unspecified; I10 Essential (primary) hypertension; J44.9 Chronic obstructive pulmonary disease, unspecified; I25.10 Atherosclerotic heart disease of native coronary artery without angina pectoris; G47.33 Obstructive sleep apnea (adult) (pediatric); Z79.02 Long term (current) use of antithrombotics/antiplatelets; Z79.82 Long term (current) use of aspirin; Z79.899 Other long term (current) drug therapy; Z87.891 Personal history of nicotine dependence

== ENCOUNTER 2017-02-09 18:51 | Inpatient (IN) | payer OTHER ==
[~2017-02-09] VITALS: Ht 172.7 cm; Wt 92.6 kg
[2017-02-09 19:45] VITALS: BP 125/64; PULSE 58; TEMP 36.5; O2SAT 93; Ht 172.7 cm; Wt 92.6 kg
[2017-02-09] MEDS ORDERED: NURSING VERBAL MED ORDER ONE ×2 (20:45→22:30)
[2017-02-09] MEDS ORDERED: SODIUM CHLORIDE 0.9% 1000ML 1,000 ML IV SCH (21:00)
[2017-02-09] MEDS ORDERED: IPRATROPIUM BROMIDE/ALBUTEROL respimat INH INH PRN (23:00)
[2017-02-09] MEDS ORDERED: MECLIZINE HCL 25 MG TAB PO PRN (23:00)
[2017-02-09] MEDS ORDERED: NITROGLYCERIN 0.4 MG SL PER TAB CHARGE SL PRN (23:00)
[2017-02-09 23:20] VITALS: BP 105/61; PULSE 59; TEMP 37; O2SAT 92
[2017-02-09 23:35] VITALS: BP 113/66; PULSE 60; TEMP 36.8
[2017-02-09 23:50] VITALS: BP 103/62; PULSE 58; TEMP 36.9; O2SAT 91
[2017-02-10] VITALS (14 sets, daily range): BP systolic 102–145; BP diastolic 60–74; PULSE 50–70; TEMP 36.5–37.1; O2SAT 92–95
[2017-02-10] MEDS ORDERED: PNEUMOCOCCAL ADMINISTRATION CHARGE ONE (05:15)
[2017-02-10] MEDS ORDERED: PNEUMOCOCCAL POLYSACCHARIDES 25 MCG/0.5 ML VIAL/SYR IM. ONE (05:15)
--- NOTE | 2017-02-10 06:17 | History and Physical ---
History & Physical Date of Service Feb 09, 2017. History & Physical CC: Left flank ecchymosis HPI: Mr. Salomon is a 70-year-old gentleman who had a left fem pop bypass in Nov. He underwent thrombolysis of his graft last week. He now had developed left flank ecchymosis with a Hgb of 7.9 done at [facility]. He also had a CT of abd and pelvis which did not show any hematoma present. The hospitalist would not admit him and wanted him transferred here due to their lack of vascular surgery. He is complaining of left flank pain at this time. No leg discomfort. PAST MEDICAL HISTORY: Positive for heart disease, hypertension, peripheral vascular occlusive disease and carotid disease. SURGICAL HISTORY: Positive for tonsillectomy, cholecystectomy, appendectomy, hernia repair, open heart bypass, nerve stimulator and heart monitor in 2011. FAMILY HISTORY: Positive for heart disease, migraines, diabetes mellitus, dementia, tuberculosis, circulatory problems, carotid artery disease. SOCIAL HISTORY: He quit smoking in 1992, smoked for 30 years. He does not drink. REVIEW OF SYSTEMS: A 10-system review of systems was obtained and only positive findings were occasional chest pain, heart failure, shortness of breath , bronchitis and heartburn along with the HPI symptoms. PHYSICAL EXAMINATION: The patient is awake, oriented x3. He is in no apparent distress. Head and neck within normal limits. I could not appreciate carotid bruits. Lungs are clear. Heart had a regular rate and rhythm. Abdominal exam is benign. There is a significant left flank ecchymotic area. No aneurysmal dilatation was appreciated. Vascular exam reveals radials, carotids and temporal arteries +2 bilaterally. Femorals are +2 bilaterally. No groin hematoma appreciated. He does have pedal pulses on the right. The left leg has good doppler pedal pulses. Imp: Left flank ecchymosis Anemia due to blood loss Plan: Patient is admitted for transfusion and monitoring of hgb for possible bleeding. I have discussed the risks options and benefits of the blood tranfusions with the patient. The patient understands the risks options and benefits and agrees to the transfusions.
[2017-02-10 06:27] LABS: HEMATOCRIT 28.8 % (42-52)
[2017-02-10] MEDS ORDERED: ATORVASTATIN 40 MG TAB PO SCH (09:00)
[2017-02-10] MEDS ORDERED: ISOSORBIDE MONONITRATE 60 MG TABCR PO SCH (09:00)
[2017-02-10] MEDS ORDERED: GALANTAMINE HYDROBROMIDE 4 MG TAB PO SCH (09:00)
[2017-02-10] MEDS ORDERED: CLOPIDOGREL BISULFATE 75 MG TAB PO SCH (09:00)
[2017-02-10] MEDS ORDERED: ASPIRIN 81 MG ECTAB PO SCH (09:00)
[2017-02-10] MEDS ORDERED: METOPROLOL TARTRATE 50 MG TAB PO SCH (09:00)
[2017-02-10] MEDS ORDERED: HYDROCHLOROTHIAZIDE 25 MG TAB PO SCH (09:00)
[2017-02-10] MEDS ORDERED: PANTOprazole SOD 40 MG TAB PO SCH (09:00)
[2017-02-10] MEDS: GABAPENTIN 600 MG TAB PO SCH ×2 (09:18→14:12)
[2017-02-10] MEDS: PRAMIPEXOLE DIHYDROCHLORIDE 0.25MG TAB PO SCH ×2 (09:19→14:12)
--- NOTE | 2017-02-10 09:23 | Clinical Documentation Query ---
CLINICAL DOCUMENTATION QUERY Dr. FRANZ, For accuracy of ICD 10 coding, please clarify documentation re: acuity of blood loss anemia In your clinical opinion is this patient being managed for: ( ) Acute blood loss anemia ( ) Chronic blood loss anemia ( ) Other explanation of clinical findings (Please Explain) ( ) Unable to determine (Please Define) ( ) Need to Discuss ( ) Not Agree The medical record reflects the following clinical findings, treatment, and risk factors. Clinical Indicators: 71 yo male presenting with L flank ecchymosis. Hgb 9.5/Hct 28.8 compared to 12.5/37.5. H/P indicates anemia due to blood loss Treatment: NSS kvo, transfuse 2 U PRBC, monitor H/H Risk Factors: L flank ecchymosis Please clarify and document your clinical opinion in the progress notes and discharge summary. Terms such as "probable", "suspected", "likely", "questionable", "possible", or "still to be ruled out" are acceptable. IF IN AGREEMENT, YOU MUST DOCUMENT ABOVE DIAGNOSTIC STATEMENT IN DAILY PROGRESS NOTES AND DISCHARGE SUMMARY. This document is not part of the patient's record. Thank You, Viviana Ponce, RN [phone]
--- NOTE | 2017-02-10 09:27 | Progress Note ---
Progress Note Date of Service: Feb 10, 2017. Subjective 71 yo m with hx HTN, PAD with fem-pop BPG, POD # 6 after BPG thrombectomy/ thrombolysis, seen today. Pt readmitted last evening d/t anemia and L flank ecchymosis noted during ED visit at [place]. Pt underwent transfusion x2 U PRBC. States feeling generally ok, just tired. VSS. Hgb this AM 9.5. Admits discomfort in L flank d/t the ecchymosis which makes it difficult for him to sleep. Denies any leg discomfort. Denies CLEANING, fever, dizziness, chest pain, SOB , N/V, other complaints. Problem List Medical Problems: (1) Hematuria Status: Acute Objective Vital Signs Vital Signs Past 12 Hours Date Time Temp Pulse Resp B/P Pulse Ox O2 Delivery O2 Flow Rate FiO2 02/10/17 07:13 36.8 63 16 127/68 94 Room Air 02/10/17 05:07 37.1 61 16 145/74 95 02/10/17 04:12 36.9 64 16 116/60 92 02/10/17 03:40 36.7 61 17 108/64 94 02/10/17 03:09 36.8 65 16 125/67 94 02/10/17 02:42 37.0 60 16 124/61 94 02/10/17 02:25 37.0 61 16 134/70 02/10/17 02:13 36.9 60 16 118/65 92 02/10/17 01:22 37.0 59 16 106/61 93 02/10/17 00:49 37.0 70 16 122/66 93 02/10/17 00:20 36.7 60 16 108/64 92 02/10/17 00:15 Room Air 02/10/17 00:06 36.9 58 16 102/60 93 02/09/17 23:50 36.9 58 16 103/62 91 02/09/17 23:35 36.8 60 18 113/66 02/09/17 23:20 37.0 59 16 105/61 92 Room Air Exam CONST: A&O x4, NAD, mildly chronically ill appearing male CHEST: RRR lungs decreased, but ctab ABD: L flank with old ecchymosis in various stages of resolution. + tenderness , No firm hematoma noted. + bs x 4 quad EXT: BLE distal pulses +1, femorals +3. No sign of distal ischemia. Intake & Output 8-Hour Column 02/09/17 02/10/17 02/10/17 16:00 00:00 08:00 Intake Total 310 ml Output Total 250 ml Balance 60 ml 24-Hour Column 02/10/17 08:00 Intake Total 310 ml Output Total 250 ml Balance 60 ml Laboratory and Microbiology Results Past 24 Hours Test 02/10/17 06:00 Range/Units Hemoglobin 9.5 14.0-18.0 g/dL Hematocrit 28.8 42-52 % ASSESSMENT and PLAN: Anemia s/p fem-pop BPG thrombectomy/thrombolysis Pt doing well after transfusion. Will recheck Hgb for stability around 1200. If stable, will consider d/c today. Percocet for discomfort.
[2017-02-10] MEDS ORDERED: OXYCODONE/ACETAMINOPHEN 5-325 TAB PO PRN (09:30)
[2017-02-10] MEDS ORDERED: NURSING VERBAL MED ORDER ONE (11:15)
[2017-02-10] MEDS ORDERED: ONDANSETRON INJ 2 MG/ML 2 ML VIAL IV ONE (11:20)
[2017-02-10 13:00] LABS: HEMATOCRIT 28.2 % (42-52)
[2017-02-10] MEDS ORDERED: TRAMADOL HCL 50 MG TAB PO PRN (13:30)
[2017-02-10] MEDS ORDERED: FRRS300 PO (14:06)
[2017-02-10] MEDS ORDERED: ULT50X PO (14:06)
--- NOTE | 2017-02-10 14:09 | Discharge Instructions ---
Discharge Instructions Date of Service Feb 10, 2017. Admission Reason for Admission: Anemia Discharge Discharge Diagnosis / Problem: Post op Anemia Discharge Goals Goal(s): Therapeutic intervention Activity Recommendations Activity Limitations: per Instructions/Follow-up section Lifting Limitations: gradually increase as tolerated Exercise/Sports Limitations: gradually increase as tolerated Increase activity as tolerated . Instructions / Follow-Up Instructions / Follow-Up With Dr Shabazz or Tonya Damian PA-C in 1-2 weeks With your PCP for checkup in 1-2 weeks Current Hospital Diet Patient's current hospital diet: AHA Diet (Heart Healthy) Discharge Diet Recommended Diet: AHA Diet (Heart Healthy) Pending Studies Studies pending at discharge: no Medical Emergencies . Who to Call and When: Medical Emergencies: If at any time you feel your situation is an emergency, please call 911 immediately. . Non-Emergent Contact Non-Emergency issues call your: Primary Care Provider . "Provider Documentation" section prepared by Tonya Damian. . VTE Core Measure Inpt VTE Proph given/why not?: Enoxaparin (Lovenox)[facility] Drug Monitoring Program Search Results: patient reviewed within database, no issues identified
--- NOTE | 2017-02-10 14:11 | Progress Note ---
Progress Note Date of Service Feb 10, 2017. Progress Note Pt without complaints and vital signs remain stable. Hgb stable at 9.4. Discussed with Dr Vazquez, recommends d/c home on iron and will recheck in 1-2 weeks in office.
[2017-02-10] MEDS ORDERED: GABAPENTIN 400 MG CAP PO SCH (21:00)
--- NOTE | 2017-02-16 11:04 | DISCHARGE SUMMARY ---
ADMISSION DIAGNOSES: 1. Postoperative anemia. 2. Status post left lower extremity femoral popliteal artery bypass graft, thrombectomy, and thrombolysis. DISCHARGE DIAGNOSES: 1. Postoperative anemia. 2. Status post left lower extremity femoral popliteal artery bypass, thrombectomy, and thrombolysis due to the acute occlusion. DISCHARGE CONDITION: Stable. CONSULTATIONS IN THE HOSPITAL: Included none. PROCEDURES IN THE HOSPITAL: Included none. HISTORY OF PRESENT ILLNESS: Mr. Salomon is a 71-year-old male who had previously undergone a left lower extremity femoropopliteal artery bypass graft performed in [address] Vazquez due to severe claudication of the left lower extremity. He had been doing well and followed up in the office for routine bypass graft check and had been doing well. One week prior to this admission, he went to his local hospital due to pain and numbness in his left foot and was found to have a complete occlusion of his bypass graft. He at that point was recommended to undergo thrombectomy and thrombolysis of the bypass graft to revascularize his left lower extremity. The patient did have TPA infused that time and did well postoperatively, although he did have a left flank hematoma postoperatively. He was stable and okay for discharge. Approximately 1 week after discharge, he went to his local hospital again due to the discomfort and ecchymosis in his left flank. He did have a CTA performed which demonstrated no active bleeding and he was transferred to [facility] for transfusion due to anemia of 7.5. HOSPITAL COURSE: The patient was admitted on 02/09/2017 to undergo a transfusion for his anemia. He underwent transfusion with 2 units and had post-treatment hemoglobin of 9.5, which was confirmed by having every draw 4 hours later and was 9.4. He was felt to be stable enough for discharge at that point and he had no active bleeding, and did not require any further intervention. He was discharged on iron tablets. PHYSICAL EXAMINATION: VITAL SIGNS: On day of discharge, his vital signs were as follows: A temperature of 36.5, pulse of 63, respiratory rate of 16, blood pressure of 111/65, and pulse oximetry of 94% on room air. CONSTITUTIONAL: The patient is a mildly chronically ill appearing elderly male in no acute distress. He ambulated slowly but without assistance and is active, alert and oriented x4. HEAD: Normocephalic and atraumatic. EYES: EOMI. ENT: Demonstrates no hearing loss, rhinorrhea or pharyngeal erythema. NECK: Supple, nontender with a midline trachea without masses or crepitus. LUNGS: Demonstrated no dyspnea. They were decreased somewhat throughout but clear. CARDIOVASCULAR: His heart demonstrated regular rate and rhythm without murmurs, lifts, heaves, thrills or gallops. Peripheral pulses are full and equal in all extremities unless otherwise noted, specifically they were normal in his carotid, brachial, radial, femoral and more normal in his left DP and PT pulses are +2 with brisk capillary refill. His right foot distal pulses are +1 with brisk capillary refill and no sign of distal ischemia. ABDOMEN: Soft, nontender, initially it was soft but tender on the left lower quadrant and flank where old ecchymosis was noted and the edges are beginning to turn yellowish green. EXTREMITIES: Bilateral upper extremities demonstrate no cyanosis, edema, clubbing, varicosities or ulcers. Bilateral lower extremities demonstrate no cyanosis, edema, clubbing, varicosities or ulcers. DIET UPON DISCHARGE: Should be a low-cholesterol AHA diet. MEDICATIONS UPON DISCHARGE: Medications were reconciled in the chart and are as per his discharge instructions with the noted addition of tramadol for pain and iron tablets due to his anemia. DISCHARGE PLAN AND FOLLOWUP: The patient was advised office with any questions or concerns. His followup should be within 2 weeks for reevaluation. JASON
== END 2017-02-10 17:00 | disposition home or self-care (01) | DRG 812 ==
LOC: C.MSW 20:20
PROVIDERS: ADMIT Surgery Vascular Surgery; ATTEND Surgery Vascular Surgery
DX: D62 Acute posthemorrhagic anemia (principal); R58 Hemorrhage, not elsewhere classified; I10 Essential (primary) hypertension; I73.9 Peripheral vascular disease, unspecified; Z95.820 Peripheral vascular angioplasty status with implants and grafts

== ENCOUNTER → 2017-03-22 | Outpatient (CLI) | payer OTHER ==
[~2017-03-22] MED LIST changes: +FRRS300 PO; +ULT50X PO
[2017-03-22 13:02] LABS: BASO % 0.5 %; BASO ABS # 0.02 K/uL (0-0.2); COMPLETE YES; EOS % 2.4 %; HEMATOCRIT 41.4 % (42-52); IG% 0.3 %; LYMPH % 24.1 %; LYMPH ABS # 0.89 K/uL (1.2-3.4); MEAN CELL VOLUME 95.6 fL (80-100); MEAN CORPUSCULAR HEMOGLOBIN 31.2 pg (25-34); MEAN CORPUSCULAR HGB CONC 32.6 g/dl (32-36); MEAN PLATELET VOLUME 11.3 fL (7.4-10.4); MONO % 8.6 %; NEUT % 64.1 %; PLATELET COUNT 151 K/uL (130-400); RED BLOOD COUNT 4.33 M/uL (4.7-6.1)
[2017-03-22 13:49] LABS: ALT/SGPT 20 U/L (12-78); AST/SGOT 25 U/L (15-37); BLOOD UREA NITROGEN 5 mg/dl (7-18); BUN/CREATININE RATIO 5.6 (10-20); CARBON DIOXIDE 29 mmol/L (21-32); CHLORIDE 109 mmol/L (98-107); CHOLESTEROL 82 mg/dl (0-200); CREATININE 0.82 mg/dl (0.60-1.40); GLUCOSE 93 mg/dl (70-99); POTASSIUM 3.9 mmol/L (3.5-5.1); SODIUM 146 mmol/L (136-145)
[2017-03-22 13:52] LABS: CHOLESTEROL/HDL RATIO 2.7; HDL CHOLESTEROL 30 mg/dl; LDL CHOLESTEROL CALCULATED 34 mg/dl; TRIGLYCERIDES 92 mg/dl (0-150); VERY LOW DENSITY LIPOPROT CALC 18 mg/dl
== END | disposition home or self-care (01) ==
LOC: C.LABMFLN 09:41
PROVIDERS: ATTEND Internal Medicine Cardiovascular Disease
DX: E78.5 Hyperlipidemia, unspecified (principal); I73.9 Peripheral vascular disease, unspecified; I25.10 Atherosclerotic heart disease of native coronary artery without angina pectoris; I10 Essential (primary) hypertension

== ENCOUNTER → 2017-09-03 | Outpatient (CLI) | payer OTHER ==
--- NOTE | 2017-09-03 10:11 | DIAGNOSTIC IMAGING REPORT ---
CHEST 2 VIEWS ROUTINE CLINICAL HISTORY: J44.9 Chronic obstructive pulmonary [id number] Restrictive hank dyspnea COMPARISON STUDY: 01/27/2017 FINDINGS: Mild stable cardiomegaly. Prior median sternotomy. Diaphragms smooth. Lungs are clear. Stimulator electrodes is seen in the low thoracic region unchanged in location from the prior study. IMPRESSION: Stable chronic and postoperative change. No acute process. The above report was generated using voice recognition software. It may contain grammatical, syntax or spelling errors. Electronically signed by: Yaron Tavares M.D. 09/03/2017 10:10 AM Dictated Date/Time: 09/03/2017 10:09 AM
== END | disposition home or self-care (01) ==
LOC: C.LAB1850 09:49
PROVIDERS: ATTEND Internal Medicine Pulmonary Disease
DX: J44.9 Chronic obstructive pulmonary disease, unspecified (principal); J98.4 Other disorders of lung

== ENCOUNTER → 2017-12-21 | Outpatient (CLI) | payer OTHER ==
[~2017-12-21] MED LIST changes: +GABA-1220 PO; -GABA1CAP5 PO; +PRAM0.1212 PO; -PRAM0.129 PO
[2017-12-21 12:46] LABS: BASO % 0.3 %; BASO ABS # 0.02 K/uL (0-0.2); EOS % 3.3 %; EOS ABS # 0.22 K/uL (0-0.5); HEMATOCRIT 43.3 % (42-52); HEMOGLOBIN 14.5 g/dL (14.0-18.0); IG# 0.01 K/uL (0.00-0.02); LYMPH % 24.2 %; LYMPH ABS # 1.61 K/uL (1.2-3.4); MEAN CELL VOLUME 93.1 fL (80-100); MEAN CORPUSCULAR HEMOGLOBIN 31.2 pg (25-34); MEAN CORPUSCULAR HGB CONC 33.5 g/dl (32-36); MEAN PLATELET VOLUME 10.7 fL (7.4-10.4); MONO % 8.7 %; MONO ABS # 0.58 K/uL (0.11-0.59); NEUT % 63.3 %; PLATELET COUNT 185 K/uL (130-400); RED CELL DISTRIBUTION WIDTH CV 12.8 % (11.5-14.5); RED CELL DISTRIBUTION WIDTH SD 43.2 fL (36.4-46.3); WHITE BLOOD COUNT 6.64 K/uL (4.8-10.8)
[2017-12-21 14:32] LABS: ALBUMIN 3.4 gm/dl (3.4-5.0); ALT/SGPT 27 U/L (12-78); AST/SGOT 29 U/L (15-37); BLOOD UREA NITROGEN 9 mg/dl (7-18); CARBON DIOXIDE 29 mmol/L (21-32); CREATININE 0.86 mg/dl (0.60-1.40); GLUCOSE 83 mg/dl (70-99); SODIUM 141 mmol/L (136-145)
[2017-12-21 14:44] LABS: ALKALINE PHOSPHATASE 116 U/L (45-117); CHOLESTEROL 73 mg/dl (0-200); LDL CHOLESTEROL CALCULATED 17 mg/dl; TOTAL PROTEIN 6.9 gm/dl (6.4-8.2)
== END | disposition home or self-care (01) ==
LOC: C.LABMFLN 08:58
PROVIDERS: ATTEND Family Medicine
DX: I25.10 Atherosclerotic heart disease of native coronary artery without angina pectoris (principal); E78.5 Hyperlipidemia, unspecified